=== PATIENT | female | born 1945 | race Caucasian/White ===

== ENCOUNTER 2025-07-09 18:21 | Emergency (ER) | payer MEDICARE, BC ==
[2025-07-09] MEDS: Ketorolac 15 MG/ML SDV IVPUSH ONE (19:59)
[2025-07-09] MEDS: Ketorolac 15 MG/ML SDV IM ONE (20:00)
[2025-07-09] MEDS ORDERED: Propofol 200 MG/20 ML SDV ONE (20:37)
== END 2025-07-09 21:15 | disposition home or self-care (01) ==
LOC: JP.ED 18:21
DX: S43.014A Anterior dislocation of right humerus, initial encounter (principal); S43.034A Inferior dislocation of right humerus, initial encounter; I10 Essential (primary) hypertension; Z87.891 Personal history of nicotine dependence; Z79.899 Other long term (current) drug therapy; W01.0XXA Fall on same level from slipping, tripping and stumbling without subsequent striking against object, initial encounter
CPT/HCPCS: 01620; 23650; 23655; 73020; 73030; 96374; 99283; J2704; J1885